=== PATIENT | female | born 1980 | race Caucasian/White ===

== ENCOUNTER 2019-01-09 14:37 | Outpatient (CLI) | payer OTHER ==
--- NOTE | 2019-01-09 16:44 | Diagnostic Imaging Report ---
PATIENT MR#: [id number] PATIENT PATIENT NAME: JOJO DENNIS DATE OF : 1980 REFERRING PHYSICIAN: Xi Duncan EXAM DATE: 01/09/2019 ACCESSION NUMBER: [id number] EXAM DESCRIPTION: L SPINE 2 OR 3 VIEWS CLINICAL HISTORY: RT. SIDE LOW BACK PAIN WITH RT SIDE SCIATICA, PT STATES LOW BACK PAIN ONGOING FOR X 2 MONTH. COMPARISON: No relevant comparison is available at the time of interpretation. L-SPINE XRAY, 3 Views: Vertebral bodies: No compression deformities. Disc spaces: Normal height. Alignment: Minimal lumbar levocurvature centered at L2-3. Normal lumbar lordosis without listhesis. Abdomen: Cholecystectomy clips. IMPRESSION: Minimal upper lumbar levocurvature which may indicate paraspinal muscle spasm. Read by: Dr. Eliseo Mac Transcribed by: Eliseo Mac Transcribed Date: 01/09/2019 4:43:31 PM Electronically signed by: Dr. Eliseo Mac Date signed: 01/09/2019 4:43:31 PM
== END 2019-01-09 14:47 ==
LOC: RAD 14:37
PROVIDERS: ATTEND Nurse Practitioner Family
DX: M54.41 Lumbago with sciatica, right side (principal)
CPT/HCPCS: 72100